=== PATIENT | male | born 1995 | race Two or more races ===

== ENCOUNTER 2017-12-16 07:08 | Emergency (ER) | payer MEDICAID ==
[~2017-12-16] VITALS: Ht 170.2 cm; Wt 63.5 kg
--- NOTE | 2017-12-16 07:28 | Emergency Room Report ---
History of Present Illness General Chief Complaint: Abdominal Pain Source: Patient Present Illness HPI Mr. Crum is a healthy male 22 yo male without significant medical history. Presents with severe sudden onset of left flank pain at 0500. Sharp 10/10. sudden onset. No change with movement. +nausea/vomiting. appears clammy diaphoretic according to EMS. hx obtained from patient and EMS Allergies: Coded Allergies: No Known Allergies (Unverified , 12/16/17) Patient History Past Medical History: none Past Surgical History: none Social History: Denies: smoking Social History Narrative occupation: works at [employer] Reviewed Nursing Documentation: PMH: Agreed; PSxH: Agreed Nursing Documentation-PMH Past Medical History: No Stated History Review of Systems Constitutional: Denies: fever Gastrointestinal: Reports: no symptoms, see HPI, abdominal pain, nausea, vomiting, other All Other Systems: negative except mentioned in HPI Physical Exam Vital Signs Date Time Temp Pulse Resp B/P (MAP) Pulse Ox O2 Delivery O2 Flow Rate FiO2 12/16/17 07:01 97.7 79 18 121/74 97 Room Air 97.7 Sp02 EP Interpretation: reviewed General Appearance: GCS 15, moderate distress - appears in severe pain, pain, tearful, rocking Head: normocephalic, atraumatic Eyes: bilateral eye normal inspection, bilateral eye PERRL ENT: hearing grossly normal, normal pharynx, no angioedema, normal voice Neck: full range of motion, supple/symm/no masses Respiratory: chest non-tender, lungs clear, normal breath sounds, speaking full sentences Cardiovascular #1: regular rate, rhythm, no edema Cardiovascular #2: 2+ carotid (R), 2+ carotid (L), 2+ radial (R), 2+ radial (L) , 2+ dorsalis pedis (R), 2+ dorsalis pedis (L) Gastrointestinal: normal bowel sounds, non tender, soft, non-distended, no rebound, guarding - holding left side, moaning, rocking in pain Musculoskeletal: normal range of motion Neurologic: alert, oriented x3, responsive, motor strength/tone normal, sensory intact, speech normal Psychiatric: judgement/insight normal, memory normal, mood/affect normal, no suicidal/homicidal ideation Reflexes: 3+ bicep (R), 3+ bicep (L), 3+ tricep (R), 3+ tricep (L), 3+ knee (R) , 3+ knee (L) Skin: normal color, no rash, warm/dry, well hydrated Lymphatic: no adenopathy Medical Decision Making Diagnostic Impression: Primary Impression: Renal colic on left side ER Course Mr. Crum is now pain free. recently passed kidney stone in bladder with mild left hydronephrosis. Small focal calyceal rupture noted. I spoke with urologist Dr. Mena who recommended 7 days of antibiotics and follow up in 2 weeks. Patient understands return precautions: pain or fever. rx: ciprofloxacin for 7 days I reviewed labs obtained. WNL CT/MRI/US Diagnostic Results CT/MRI/US Diagnostic Results : Impression Findings: There is suggestion of minimal left hydronephrosis. There is an unusual contour abnormality of the upper pole of the left kidney, with some peripheral calcifications and what may be a small peripheral fluid collection or tiny hematoma. No calyceal calculi are demonstrated. No ureteral calculi are demonstrated. However, there is a 2 mm calculus projecting centrally in the posterior bladder, likely within the bladder lumen. No right renal or ureteral calculi are demonstrated. Lack of enteric contrast limits assessment of the renal parenchyma. No gross renal parenchymal mass or cyst demonstrated. Lack of IV contrast limits assessment of the other solid organs. The liver, gallbladder, bile ducts, pancreas, spleen, adrenals are all unremarkable. No retroperitoneal or mesenteric mass or adenopathy. No pelvic mass or adenopathy. The appendix is normal. No evidence of diverticulosis or diverticulitis. No small bowel distention. No free or loculated intraperitoneal gas or fluid is evident. The included lung bases are clear. The bones are unremarkable. Impression: No definite renal ureteral calculi demonstrated. However, a 2 mm calculus projected dependently within the bladder may reflect a recently passed calculus , and there is very mild left hydronephrosis. Unusual contour abnormality of the upper pole of the left kidney, associated peripheral calcifications. Significance is uncertain. This may represent focal calyceal rupture. Consider further evaluation with contrast CT if clinically indicated Reevaluation Time: 08:19 - Patient's pain 1/10, he looks much better Last Vital Signs Date Time Temp Pulse Resp B/P (MAP) Pulse Ox O2 Delivery O2 Flow Rate FiO2 12/16/17 07:01 97.7 79 18 121/74 97 Room Air 97.7 Disposition: HOME, SELF-CARE Condition: Stable Physician Consult: Dr. Mena Scripts Ciprofloxacin Hcl* (CIPROFLOXACIN HCL*) 500 Mg Tablet 500 MG ORAL Q12H for 7 Days, #14 TAB 0 Refills Prov: XU DALEY 12/16/17 Referrals: Melvin Mena MD Departure Forms: Return to Work Return to Work in (Days): 1 XU DALEY Dec 16, 2017 07:28
[2017-12-16] MEDS ORDERED: Morphine Sulfate 4mg/ml Inj (IV USE ONLY) IVP ONE (07:30)
[2017-12-16] MEDS ORDERED: Ketorolac 30mg Inj IV ONE (07:30)
[2017-12-16 08:01] LABS: ANION GAP 11 mmol/L (5-15); BLOOD UREA NITROGEN 12 mg/dL (7-18); CALCIUM 9.8 MG/DL (8.5-10.1); CARBON DIOXIDE 23 MMOL/L (21-32); CHLORIDE 102 MMOL/L (98-107); POTASSIUM 4.8 MMOL/L (3.5-5.1); SODIUM 136 MMOL/L (136-145)
[2017-12-16 08:11] VITALS: BP 119/73
[2017-12-16 08:12] LABS: HEMATOCRIT 42.2 % (42.0-52.0); HEMOGLOBIN 14.9 G/DL (14.2-18.0); MEAN CORPUSCULAR VOLUME 86 FL (80-99); PLATELET COUNT 245 K/UL (150-450); RED CELL DISTRIBUTION WIDTH 10.4 % (11.6-14.8); WHITE BLOOD COUNT 8.1 K/UL (4.8-10.8)
--- NOTE | 2017-12-16 08:31 | Diagnostic Imaging Report ---
Indication: Sudden onset of left flank pain Technique: Spiral acquisitions obtained through the abdomen and pelvis. No oral or IV contrast utilized, per urinary stone protocol. Multiplanar reconstructions were generated. Total dose length product 516.95 mGycm. CTDIvol(s) 11.22 mGy. Dose reduction achieved using automated exposure control Comparison: none Findings: There is suggestion of minimal left hydronephrosis. There is an unusual contour abnormality of the upper pole of the left kidney, with some peripheral calcifications and what may be a small peripheral fluid collection or tiny hematoma. No calyceal calculi are demonstrated. No ureteral calculi are demonstrated. However, there is a 2 mm calculus projecting centrally in the posterior bladder, likely within the bladder lumen. No right renal or ureteral calculi are demonstrated. Lack of enteric contrast limits assessment of the renal parenchyma. No gross renal parenchymal mass or cyst demonstrated. Lack of IV contrast limits assessment of the other solid organs. The liver, gallbladder, bile ducts, pancreas, spleen, adrenals are all unremarkable. No retroperitoneal or mesenteric mass or adenopathy. No pelvic mass or adenopathy. The appendix is normal. No evidence of diverticulosis or diverticulitis. No small bowel distention. No free or loculated intraperitoneal gas or fluid is evident. The included lung bases are clear. The bones are unremarkable. Impression: No definite renal ureteral calculi demonstrated. However, a 2 mm calculus projected dependently within the bladder may reflect a recently passed calculus, and there is very mild left hydronephrosis. Unusual contour abnormality of the upper pole of the left kidney, associated peripheral calcifications. Significance is uncertain. This may represent focal calyceal rupture. Consider further evaluation with contrast CT if clinically indicated The CT scanner at [facility] is accredited by the [employer] and the scans are performed using protocols designed to limit radiation exposure to as low as reasonably achievable to attain images of sufficient resolution adequate for diagnostic evaluation.
[2017-12-16] MEDS ORDERED: CIPROFLOXACIN500 M2 ORAL (09:01)
[2017-12-16 09:15] VITALS: BP 119/73
[2017-12-16 09:21] LABS: APPEARANCE,URINE SLIGHTLY CLOUDY; BILIRUBIN, URINE NEGATIVE (NEGATIVE); GLUCOSE, URINE (UA) NEGATIVE (NEGATIVE); KETONES,URINE 4+ (NEGATIVE); LEUKOCYTE ESTERASE ,URINE NEGATIVE (NEGATIVE); NITRITE,URINE NEGATIVE (NEGATIVE); PH,URINE 7 (4.5-8.0); PROTEIN,URINE 2+ (NEGATIVE); UROBILINOGEN,URINE NORMAL MG/DL (0.0-1.0)
[2017-12-16 09:22] LABS: COLOR,URINE YELLOW
== END 2017-12-16 09:29 | disposition home or self-care (01) ==
LOC: EDBD 07:08 → EMR 07:40
DX: N23 Unspecified renal colic (principal)
CPT/HCPCS: 36415; 74176; 80048; 81003; 85007; 85025; 96361; 96374; 96375; 99285; J1885; J2270; J2405